=== PATIENT | female | born 1955 | race Caucasian/White ===

== ENCOUNTER 2022-04-30 08:15 | Outpatient (RCR) | payer MEDICARE, SELFPAY ==
--- NOTE | 2022-04-08 11:38 | PT.OPE ---
PT [facility] PT [facility] Eval Start: 04/08/22 10:50 Freq: Status: Active Protocol: Document 04/08/22 10:50 JOSE ALFREDO (Rec: 04/08/22 11:31 JOSE ALFREDO Desktop) E-Signed By Gilmar Patel PT, ATC Physical Therapy Outpatient Evaluation Insurance Information Insurance Name Medicare B Medical Diagnosis L shoulder pain Treating Diagnosis L shoulder pain L shoulder weakness Referring MD Daiana Gonzales PA-C Subjective Subjective Chief complaint is L shoulder pain with active motion yet also at times with rest. L posteriolateral wrist pain appears related at times. Insidious onset, gradual worsening last 10 months. 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 FLEX, IR, EXT 5/5. R shoulder 5/5 all patterns. Palpation Tender in the subacromial space of the L shoulder, mild post cuff tenderness. Posture Bilateral forward shoulder and forward head, increased thoracic kyphosis Other/Pertinent Objective Positive special tests for L shoulder: Hoizontal adduction with over pressure Scherer-Edy Glenohumeral joint mobility- glide directions are not limited, no evidence of adhesive capsulitis. Assessment Assessment/Impression Trish is a pleasant 67 year old woman referred to PT because of L shoulder and L wrist pain. 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 No PMHx including previous symptom episode or injury to the shoulder. Pain is described as sharp with snapping occurrence with active L shoulder movements, particularly lifting out to her side or across her body. Although she did not complain of weakness she agrees to losses found during the examination. The L shoulder also causes discomfort, ache , at rest or when sleeping- laying upon it. X-rays identified moderate degenerative changes in the L acromioclavicular and glenohumeral joints. She has been involved lately with providing care for her as he is recovering from lower back surgery. 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 Following todays examination it appears that she is experiencing L shoulder pain and weakness due to RC tendinosis > joint degeneration. Her wrist discomfort does not appear to have a direct correlation to her shoulder problem. I suspect OA of this joint. Skilled PT addressing posture improvement principles, scapular and posterior cuff strengthening, light RC exercise, AAROM and activity modification reccomended. Primary Functional Limitations Lifting items-laundry. Reaching into cupboards. Fastening seatbelt in car. Finding comfort in sleeping. Plan of Care Rehabilitation Potential Good Physical Therapy Goals 1.Indpendent and correct performance with home ex program. 2.Able to reach overhead into cupboard, L shoulder pain 3/10 or less. 3.Able to lay on involved shoulder x 30 mins without pain interruption. 4.Improve L shld strength for ABD and ER to 4+/5 or more, improving ability for lifting items/ADLs. Coordination/Communication With Referral Source Frequency/Duration 1-2x per week 3-6 weeks Patient Will Be Discharged From Therapy Independent w/HEP, Independently Progressing Evaluation Billing Untimed Code Treatment Minutes 30 PT Eval No Charge No Complexity Low Certification Information Initial Certification Date 04/08/22 Ending Certification Date 07/09/22
== END 2022-09-03 12:51 | disposition home or self-care (01) ==
PROVIDERS: PCP Physician Assistant Medical; Visit Provider Physician Assistant Medical
DX: M25.512 Pain in left shoulder (principal); Z51.89 Encounter for other specified aftercare
CPT/HCPCS: 97110; 97140; 97161

== ENCOUNTER 2022-08-27 06:57 | Day surgery (SDC) | payer MEDICARE, SELFPAY ==
[2022-08-27] VITALS (12 sets, daily range): BP systolic 94–137; BP diastolic 56–88; PULSE 45–72; RESP 12–18; TEMP 36.4–37.3; O2SAT 93–97; BMI 35.1
[2022-08-27] MEDS: LACTATED RINGERS 1000 ML 1,000 ML 100 ML IV ×2 (07:30→09:51)
[2022-08-27] MEDS: MIDAZOLAM HCL 1 MG/ML inj IVP (09:12)
[2022-08-27] MEDS: fentaNYL 100 MCG/2 ML inj IVP (09:12)
[2022-08-27] MEDS: CEFAZOLIN 2 GM in 0.9 % SODIUM CHLORIDE Mini-bag 100 ML IVPB (09:20)
--- NOTE | 2022-08-27 09:20 | SUR.PREOP ---
TIME?OUT:?0910 PT/RN/MDA?VERIFICATION?OF?SURGICAL?SITE,?PROCEDURE,?AND?CONSENT OBTAINED?PRIOR?TO?INVASIVE?PROCEDURE.Left shoulder
--- NOTE | 2022-08-27 09:23 | SUR.PREOP ---
Upto BR to void before neve block placed to OR via cart nerve block in place
--- NOTE | 2022-08-27 09:42 | P.NB_ITS ---
Nerve Block Nerve Block Time Seen by Provider: 09:12 Date Seen: 08/27/22 Type of block requested by surgeon for post-operative analgesia: supraclavicular Side: left Time out performed: Yes Verification of patient name: Yes Verification of date of : Yes Site marking: site marked Name of person performing procedure: Tr Continuous monitoring Was continuous monitoring of O2 sat, B/P, section 8 property manager, recorded every 15 minutes?: Yes Procedure Checklist: sterile prep, needles and gloves Ultrasound guided. Images saved: Yes Medications given in 5ml increments after negative aspiration: Ropivicaine %: 0.5 mL: 20 Needle gauge: 22 Decadron (mg): 10 Precedex (mcg): 25 Patient tolerated procedure well: Yes Block Charges Block Charge (with Pro Fee): Brachial Plexus Use of Ultrasound Machine for Block: Yes- US Guidance/pain block
[2022-08-27] MEDS: EPINEPHrine 1 MG in SODIUM CHLORIDE IRRIG SOLUTION 3,000 ML 9003 MG IRRIGATION ×6 (10:00→11:30)
--- NOTE | 2022-08-27 10:35 | W.ANESCHARGE ---
Anesthesia Charges Start Date/Time Anesthesia Start Date: 08/27/22 Anesthesia Start Time: 09:17 Stop Date/Time Anesthesia Stop Date: 08/27/22 Anesthesia Stop Time: 12:40 Summary Emergency: No
--- NOTE | 2022-08-27 12:21 | PM.ORPRC ---
Procedure Note Date of procedure: 08/27/22 Procedure: PREOPERATIVE DIAGNOSES: 1. Left shoulder rotator cuff tear. 2. Left shoulder AC degenerative joint disease, primary, moderate-severe 3. Left shoulder high-grade partial-thickness biceps tearing 4. Left shoulder subacromial impingement syndrome. POSTOPERATIVE DIAGNOSES: 1. Left shoulder rotator cuff tear - full-thickness supraspinatus and significant portion infraspinatus as well as upper border subscapularis 2. Left shoulder AC degenerative joint disease, primary, moderate-severe 3. Left shoulder long head biceps high-grade partial-thickness tearing 4. Left shoulder anterior and superior labral tearing. 5. 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 Also grade 3 chondromalacia glenoid. 6. Adhesions of supraspinatus and infraspinatus rotator cuff tissue 7. Left shoulder subacromial impingement syndrome. NAME OF OPERATION: 1. Left shoulder arthroscopic rotator cuff repair (massive tear, full-thickness supra and majority infraspinatus as well as upper border subscapularis). Of note, 25% at a time was required for this case compared to a typical rotator cuff partly due to the patient's body habitus (BMI 35.1) and partly because of the complexity of the rotator cuff tear with the adhesions. This required extra hands for assistance and increased time is noted. 2. Left shoulder arthroscopic extensive glenohumeral debridement including debridement of humeral head chondral tissue, glenoid chondral tissue, biceps stump, and anterior and superior labral tissue. 3. Left shoulder arthroscopic long head of biceps tenotomy. 4. Left shoulder arthroscopic lysis of adhesions (distinctly separate from the typical rotator cuff repair given the chronicity of tear, retracted tissue, and split of the rotator cuff). This included primarily adhesions on the superficial surface but also to some degree in the deep surface. SURGEON: Les Tsai MD GAS PLANT SPECIALIST: Vu Hummel PA-C. Of note, a skilled higher level teaching assistant was critical for this case to aide in patient positioning, suture manipulation, arm positioning, instrument positioning, and closure. ANESTHESIA: General plus preoperative supraclavicular block. EBL: Less than 50 mL IMPLANTS: Arthrex 4.75 mm BioComposite SwiveLock suture anchor (x1); 2.6 mm FiberTak RC (x1); 5.5 mm BioComposite corkscrew suture anchor (x1); 5.5 mm BioComposite SwiveLock suture anchor (x2) COMPLICATIONS: None evident INDICATIONS: The patient is a pleasant, 67-year-old female who has experienced left shoulder pain that has been increasing in recent time. Physical exam and imaging were consistent with a rotator cuff tear. Given their findings, as well as the weakness and pain, and inadequate response to nonoperative management, recommendation was made for surgery. FINDINGS: Exam under anesthesia revealed stable shoulder with excellent range of motion. The diagnostic arthroscopy revealed grade 3 chondromalacia broadly, specially midportion. Grade 3 chondromalacia broadly through the humeral head but also grade 4 on the central portion measuring approximately 6 mm in diameter.. The Subscapularis tendon was torn from its upper border to the upper half of the tendon with retraction along with a medial benjie retracted tissue. The long head of the biceps tendon was torn and high-grade partial-thickness manner. It did still have some connective tissue to the biceps tubercle. The superior rotator cuff tendon was found to be torn full-thickness through the entire supraspinatus and majority of the infraspinatus with a split essentially at their interval medially. The tissue was also retracted to the medial humeral head. It had significant adhesions on the superficial surface in particular, but also in the deep surface articular side.. The labrum was degeneratively frayed and torn in the anterior and superior aspects. No loose bodies were identified within the pouch or subscapularis recess. PROCEDURE: Following a thorough discussion of risks, benefits, and alternatives, consent was obtained and the left shoulder was marked. The patient was brought to the operating room and placed supine on the operating table. Induction of anesthesia was completed after preoperative supraclavicular block was administered in preop holding. Appropriate time out was performed identifying proper patient, site, and procedure. 2 g IV Ancef was administered within 1 hour of incision preoperatively. The left upper extremity was prepped and draped in the appropriate sterile fashion using ChloraPrep prep. This was after the patient was positioned in the beach chair with their head in neutral alignment and all bony prominences well padded. The shoulder was insufflated with 20mL of normal saline via an 18g spinal needle from a posterior approach. An 11 blade skin incision allowed a blunt trochar to be inserted and diagnostic arthroscopy to be performed with the findings as noted above. An anterior portal was established with an outside in technique. This allowed the probe to be inserted and confirm the diagnostic arthroscopic findings. The shaver was then inserted and allowed debridement of the anterior and superior labrum. The shaver was also utilized for debridement of the loose chondral flaps on the articular surface of the glenoid chondral tissue and the humeral head chondral tissue as well as the biceps stump. Additionally, the long of the biceps was released from the bicipital tuberosity for arthroscopic tenotomy. The stump was debrided with a shaver. Following this, the upper border subscapularis was repaired after debriding the lesser tuberosity with the shaver and Wheelwright cautery. Subscapularis was captured in horizontal mattress fashion with a fiber tape suture. The tails were brought to a single anchor in the lesser tuberosity with excellent reapproximation of the subscap tendon and good excursion/tension. As the tear was slightly larger than typical, the eyelet sutures were also utilized to help reapproximate more subscapularis tissue to the lesser tuberosity with excellent reapproximation achieved. Thereafter, the subacromial space was entered. Here, it was decided that a subacromial decompression and distal clavicle excision would be avoided given the massive tear nature and the risk for anterior superior escape should the patient have a rotator cuff retear in the future. Further inspection of the supraspinatus and infraspinatus rotator cuff was performed. This identified the tear as noted above. The margins of the tear were debrided, and the greater tuberosity was debrided with a combination of the apollo cautery, shaver, and bur on reverse setting. Extensive lysis of adhesions was performed the combination of Wheelwright cautery and torpedo shaver particular on the superficial surface and also in the deep surface. This again was distinctly separate from the rotator cuff preparation, debridement, and repair. This was above and beyond what is normally performed for rotator cuff repair due to the adhesions. Initially, [id number] repair was performed of the longitudinal split between the supraspinatus and infraspinatus. This was done with 3 separate suture tapes in marginal convergence fashion. Thereafter, a corkscrew anchor was placed posterior medial and the sutures were passed independently 0 (double loaded). Then, a FiberTak RC was passed anterior medial. The 6 tails were brought to lateral row anchors with excellent reapproximation and footprint compression of the rotator cuff tissue. In addition, a FiberLink suture was passed through the posterior far portion to help reapproximate a dog ear. Prior to anchor recycler forklift driver truck driver removal, the eyelet sutures were tugged on for each anchor and found that the anchor had excellent stability within the bone. The shoulder was placed through range of motion and found to be stable. The rotator cuff was re-probed and found to be stable. Instruments were removed. Excess fluid was drained, closure performed with 4-0 Monocryl and Steri-Strips. Dressings were applied. Sling was applied. The patient was awoken from anesthesia and transferred to the PACU in stable condition. A skilled higher level teaching assistant was critical for this case to aid in patient positioning, limb positioning, skill to manipulate arthroscopic instruments and camera, suture management, patient safety, and closure. Of note, 25% at a time was required for this case compared to a typical rotator cuff partly due to the patient's body habitus (BMI 35.1) and partly because of the complexity of the rotator cuff tear with the adhesions. This required extra hands for assistance and increased time is noted. PLAN: 1. Elbow, forearm, wrist and digit range of motion of operative extremity as tolerated. 2. Encouraged ice. 3. Percocet for pain as needed. 4. Sling at all times except for ROM and showering. 5. Follow up with PA visit in 1-2 weeks for wound check. Initiate physical therapy following that visit for passive range of motion. Initiate active assisted range of motion at 8 weeks. Anticipate no strengthening until week 12-13. May do pendulums now.
--- NOTE | 2022-08-27 12:41 | W.ANESCHARGE ---
Anesthesia Charges Start Date/Time Anesthesia Start Date: 08/27/22 Anesthesia Start Time: 09:17 Stop Date/Time Anesthesia Stop Date: 08/27/22 Anesthesia Stop Time: 12:40 Summary Emergency: No
--- NOTE | 2022-08-27 13:10 | W.ANESCHARGE ---
Anesthesia Charges Start Date/Time Anesthesia Start Date: 08/27/22 Anesthesia Start Time: 09:17 Stop Date/Time Anesthesia Stop Date: 08/27/22 Anesthesia Stop Time: 12:40 Summary Emergency: No
--- NOTE | 2022-08-27 13:58 | SUR.PHASEII ---
Pt up in chair doing well denies any pain, instructions gone over with pt and family taking fluids well ready to go home
== END 2022-08-27 14:10 | disposition home or self-care (01) ==
PROVIDERS: PCP Physician Assistant Medical; Visit Provider Orthopaedic Surgery Sports Medicine
PROC: (CPT 29805; principal; 2022-08-27 08:30)
DX: M75.122 Complete rotator cuff tear or rupture of left shoulder, not specified as traumatic (principal); M19.012 Primary osteoarthritis, left shoulder; S46.112A Strain of muscle, fascia and tendon of long head of biceps, left arm, initial encounter; M75.42 Impingement syndrome of left shoulder; S43.432A Superior glenoid labrum lesion of left shoulder, initial encounter; M94.212 Chondromalacia, left shoulder; M75.02 Adhesive capsulitis of left shoulder
CPT/HCPCS: 29827; 29828; 29823; 29825; 01630; 64415; 76942; C1713; J0171; J0330; J0690; J1100; J2250; J2405; J2704; J2710; J2795; J3010; J7120; L3670

== ENCOUNTER 2022-12-01 16:00 | Outpatient (RCR) | payer MEDICARE, SELFPAY ==
--- NOTE | 2022-09-10 13:01 | PT.OPE ---
PT [facility] Eval PT [facility] Eval Start: 09/10/22 08:13 Freq: Status: Active Protocol: Document 09/10/22 10:31 JOSE ALFREDO (Rec: 09/10/22 10:57 JOSE ALFREDO Desktop) E-signed By Gilmar Patel, PT, ATC Physical Therapy Outpatient Evaluation Insurance Information Insurance Name Medicare B Medical Diagnosis Z98.890 s/p rotator cuff repair Treating Diagnosis L shoulder pain L shoulder ROM deficits L shoulder weakness Referring MD Abreu Subjective Subjective After a long year of L shoulder pain with treatment including physical therapy, Trish decided to have her L shoulder surgically repaired on 08/27/22. She says she is recovering well with average pain rating a 5/10. She is unable to sleep reclined in her bed and sleeps in a recliner currently. Using one pain medication pill prior to falling asleep and managing her pain during the day with cold pack application. She did apply heat for the first time last night and said it felt good with no increase in symptoms today. She understands her orders to remain in the sling x 6 weeks from the surgery date while performing shoulder pendulum and active elbow and wrist ROM exercise. 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 Assessment Assessment/Impression Trish is a pleasant 67 year old woman recovering well from her L shoulder RCR two weeks ago. She understands her restrictions and has nearly completed her pain medication usage. She is using cold packs regularly and tried a heating pad last night. Although her shoulder hurts she is also complaining of muscular tension and soreness in the upper shoulder, neck and upper back. These complaints are typical of excessive guarding and can likely be lessened with manual therapy. Her passive range is exceptional for two weeks s/p surgery. She worked hard with her rehab this summer so I expect her to be an active participant with this recovery . Primary Functional Limitations Self care ADL's Driving Sleeping Plan of Care Rehabilitation Potential Good Physical Therapy Goals 1.Independent performance with HEP as progressed through protocol-IRENE ROBERSON 2.PROM FLEX 170, ABD 110, ER 70, IR 70 3.Able to lift arm to 100 degrees permitting ease with dish stacking. 4.IR to 60 degrees permitting ability for donning coat or long sleeve shirt. 5.Pain 2/10 or less in absence of medication. Coordination/Communication With Referral Source Treatment Plan/Direct Interventions Electrical Stimulation Frequency/Duration 1-2x per week 16-20 weeks Patient Will Be Discharged From Therapy Independent w/HEP, Independently Progressing Evaluation Billing Untimed Code Treatment Minutes 30 PT Eval No Charge No Complexity Low Certification Information Initial Certification Date 09/10/22 Ending Certification Date 12/09/22 Provider Signature Shows Agreement With POC & Medical Necessity Physician Signature & Date Requested Please Sign/Date Here Physician Comment/Change : Physician NPI Number #
== END 2022-12-01 16:54 | disposition home or self-care (01) ==
PROVIDERS: PCP Physician Assistant Medical; Visit Provider Physician Assistant Surgical
DX: Z98.890 Other specified postprocedural states (principal); Z51.89 Encounter for other specified aftercare
CPT/HCPCS: 97110; 97140; 97161

== ENCOUNTER 2023-06-29 09:04 | Outpatient (CLI) | payer MEDICARE, SELFPAY | END 2023-06-29 09:05 | disposition home or self-care (01) | PROVIDERS: PCP Physician Assistant Medical; Visit Provider Physician Assistant Medical | DX: Z01.419 Encounter for gynecological examination (general) (routine) without abnormal findings (principal); E78.5 Hyperlipidemia, unspecified; I10 Essential (primary) hypertension; R73.03 Prediabetes | CPT/HCPCS: 80053; 80061; 82043; 82570; 82607; 84443 ==

== ENCOUNTER 2023-09-07 05:21 | Emergency (ER) | payer MEDICARE, SELFPAY ==
[2023-09-07 05:23] VITALS: BP 174/100; PULSE 60; RESP 18; TEMP 36.3; O2SAT 94
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
[2023-09-07] MEDS: IPRAT-ALBUT 0.5-2.5 MG/3 ML NEB 1 NEB IH (06:03)
[2023-09-07 06:10] LABS: PCR FLU A Negative PCR FLU A (Negative); PCR FLU B Negative PCR FLU B (Negative); PCR RSV Negative PCR RSV (Negative)
[2023-09-07 06:23] VITALS: PULSE 62; RESP 18; O2SAT 95
[2023-09-07 06:25] LABS: SARS PCR* Negative SARS-CoV-2 (Negative)
== END 2023-09-07 06:27 | disposition home or self-care (01) ==
LOC: ED 06:20
PROVIDERS: Emergency Provider Family Medicine; PCP Physician Assistant Medical
DX: J40 Bronchitis, not specified as acute or chronic (principal); J18.9 Pneumonia, unspecified organism
CPT/HCPCS: 87631; 94640; 99284

== ENCOUNTER 2023-09-14 09:29 | Emergency (ER) | payer MEDICARE, SELFPAY ==
[2023-09-14] VITALS (9 sets, daily range): BP systolic 110–139; BP diastolic 78–91; PULSE 52–64; RESP 20; TEMP 37.2; O2SAT 92–96; BMI 34.8
--- NOTE | 2023-09-14 10:08 | CRLHL7_ITS ---
For Patients: As a result of the Century Cures Act, medical imaging exams and procedure reports are released immediately into your electronic medical record. You may view this report before your referring provider. If you have questions, please contact your health care provider. INDICATION: SOB TECHNIQUE: PA and lateral. COMPARISON: 11/24/2020 FINDINGS: Lungs and pleural spaces clear. Heart size and pulmonary vasculature within normal limits. No significant osseous abnormality. IMPRESSION: Negative chest. Dictated by Uday Arnold MD @ 09/14/2023 11:04:09 AM (Electronically Signed)
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
[2023-09-14 10:25] LABS: Basophils Absolute Auto 0.09 K/uL (0.00-0.30); Basophils Percent Auto 1.4 % (0.0-3.0); Eosinophils Percent Auto 7.4 % (0.0-7.0); Hematocrit 44.2 % (33.0-51.0); Hemoglobin* 14.7 gm/dL (12.0-16.0); Immature Granulocytes Abs Auto 0.01 K/uL (0.00-0.30); Immature Granulocytes Pct Auto 0.2 %; Lymphocytes Absolute Auto 2.76 K/uL (0.90-2.90); Lymphocytes Percent Auto 42.3 % (20-44); Mean Corpuscular HGB Conc 33 gm/dL (32-36); Mean Corpuscular Hemoglobin 30 pg (26-34); Mean Corpuscular Volume 91 fL (80-100); Monocytes Percent Auto 7.7 % (0.0-11.0); Platelet Count* 225 K/uL (140-440); RDW Coefficient of Variation % 13.2 % (11.5-15.5); Red Blood Count 4.85 m/uL (4.00-5.20); White Blood Count* 6.53 K/uL (4.50-11.00)
[2023-09-14 10:30] LABS: Slide Review Reflex No
[2023-09-14 10:38] LABS: Chloride* 102 mmol/L (96-114); Potassium* 3.7 mmol/L (3.6-5.1); Sodium* 137 mmol/L (135-149)
[2023-09-14 10:41] LABS: Anion Gap 8 mEq/L (7-15); Blood Urea Nitrogen* 18 mg/dL (7-30); Carbon Dioxide* 27 mmol/L (20-32); Creatinine* 0.7 mg/dL (0.5-1.5); Est. Creatinine Clearance* 52.36; Estimated Glomerular Filt Rate 94 ml/min; Glucose* 139 mg/dL (60-115)
[2023-09-14 10:42] LABS: Calcium* 9.6 mg/dL (8.4-10.6)
[2023-09-14 10:43] LABS: D Dimer Quantitative* 1.09 ug/ml (0.00-0.50)
--- NOTE | 2023-09-14 10:53 | CRLHL7_ITS ---
For Patients: As a result of the Century Cures Act, medical imaging exams and procedure reports are released immediately into your electronic medical record. You may view this report before your referring provider. If you have questions, please contact your health care provider. INDICATION: Cough, chest pain. TECHNIQUE: CT chest PE was acquired with 95 cc Isovue 370 IV contrast. COMPARISON: None. FINDINGS: Heart and vasculature: Contrast opacification of the pulmonary arterial tree is adequate. No sign of pulmonary embolism. Heart size is normal. Thoracic aorta and pulmonary artery are normal in caliber. Lungs and pleura: Scattered peribronchial thickening. No suspicious nodules or infiltrates. No pleural effusions, pleural thickening, or pneumothorax. Lymph nodes/mediastinum: No mediastinal, hilar, or axillary adenopathy. Chest wall: No masses. Upper abdomen: No acute or significant findings. Bones: Unremarkable for age. IMPRESSION: No pulmonary embolism. Scattered peribronchial thickening, possibly related to bronchitis. No focal consolidations. Please note that all CT scans at this facility use dose modulation, iterative reconstruction, and/or weight-based dosing when appropriate to reduce radiation dose to as low as reasonably achievable. Dictated by Jourdan Richardson MD @ 09/14/2023 12:19:14 PM (Electronically Signed)
[2023-09-14 10:54] LABS: Troponin I* < 0.01 ng/mL (0.01-0.04)
[2023-09-14 10:56] LABS: PCR FLU A Negative PCR FLU A (Negative); PCR FLU B Negative PCR FLU B (Negative); PCR RSV Negative PCR RSV (Negative)
[2023-09-14 10:58] LABS: SARS PCR* Negative SARS-CoV-2 (Negative)
[2023-09-14] MEDS: IPRAT-ALBUT 0.5-2.5 MG/3 ML NEB 1 NEB IH (12:47)
== END 2023-09-14 13:00 | disposition home or self-care (01) ==
PROVIDERS: Emergency Provider Internal Medicine; PCP Physician Assistant Medical
DX: J20.9 Acute bronchitis, unspecified (principal)
CPT/HCPCS: 36415; 71046; 71275; 80048; 84484; 85025; 85379; 87631; 94640; 99283; 99284; Q9967

== ENCOUNTER 2023-10-05 07:51 | Outpatient (CLI) | payer MEDICARE, SELFPAY ==
--- NOTE | 2023-10-05 08:15 | CRLHL7_ITS ---
For Patients: As a result of the Century Cures Act, medical imaging exams and procedure reports are released immediately into your electronic medical record. You may view this report before your referring provider. If you have questions, please contact your health care provider. BILATERAL SCREENING MAMMOGRAM WITH COMPUTER-AIDED DETECTION AND TOMOSYNTHESIS TECHNIQUE: CC and MLO views were obtained. These mammographic images have been obtained using full-field digital technique. These mammographic images were interpreted with the benefit of computer-aided detection. Breast tomosynthesis was used in this interpretation. COMPARISON FILM: 08/14/21, 05/18/19, 03/11/17. FINDINGS: There are scattered areas of fibroglandular density. IMPRESSION: There is no radiographic evidence for malignancy. ASSESSMENT: BI-RADS Category 2: Benign RECOMMENDATION: Routine screening mammogram in 1 year. A lay language report of this examination will be provided to the patient. JUVE CEDILLO M.D. Diagnostic Radiologist [email or web address] Transcribed: 2:[address]/Dictated by: Juve Cedillo MD @ 10/05/2023 10:04:00 AM (Electronically Signed)
== END 2023-10-05 07:52 | disposition home or self-care (01) ==
LOC: MAMMO 07:51
PROVIDERS: PCP Physician Assistant Medical; Visit Provider Physician Assistant Medical
DX: Z12.31 Encounter for screening mammogram for malignant neoplasm of breast (principal)
CPT/HCPCS: 77063; 77067

== ENCOUNTER 2023-11-02 09:57 | Outpatient (CLI) | payer MEDICARE, SELFPAY | END 2023-11-02 09:58 | disposition home or self-care (01) | PROVIDERS: PCP Physician Assistant Medical; Visit Provider Physician Assistant Medical | DX: R06.02 Shortness of breath (principal); J40 Bronchitis, not specified as acute or chronic; J45.909 Unspecified asthma, uncomplicated | CPT/HCPCS: 83880 ==

== ENCOUNTER 2023-12-29 07:00 | Outpatient (CLI) | payer MEDICARE, SELFPAY | END 2023-12-29 07:01 | disposition home or self-care (01) | LOC: NFLDREF 01-07 12:43 | PROVIDERS: PCP Physician Assistant Medical; Referring Provider Physician Assistant Medical; Visit Provider Physician Assistant Medical | DX: J40 Bronchitis, not specified as acute or chronic (principal) | CPT/HCPCS: 87070 ==

== ENCOUNTER 2024-01-04 14:03 | Outpatient (REF) | payer MEDICARE, SELFPAY ==
[2024-01-04 14:48] LABS: Basophils Absolute Auto 0.07 K/uL (0.00-0.30); Basophils Percent Auto 0.9 % (0.0-3.0); Eosinophils Percent Auto 7.9 % (0.0-7.0); Hematocrit 48.7 % (33.0-51.0); Immature Granulocytes Abs Auto 0.05 K/uL (0.00-0.30); Immature Granulocytes Pct Auto 0.7 %; Lymphocytes Absolute Auto 2.81 K/uL (0.90-2.90); Lymphocytes Percent Auto 38.1 % (20-44); Mean Corpuscular HGB Conc 33 gm/dL (32-36); Mean Corpuscular Hemoglobin 30 pg (26-34); Mean Corpuscular Volume 91 fL (80-100); Monocytes Percent Auto 8.4 % (0.0-11.0); Neutrophils Absolute Auto 3.25 K/uL (1.7-7.0); Platelet Count* 238 K/uL (140-440); Red Blood Count 5.34 m/uL (4.00-5.20); White Blood Count* 7.38 K/uL (4.50-11.00)
[2024-01-04 14:53] LABS: Slide Review Reflex No
[2024-01-05 16:08] LABS: Alpha-1-Antitrypsin 135 mg/dL (90-200); Rheumatoid Factor <10 IU/mL (0-14)
[2024-01-06 01:19] LABS: Immunoglobulin A 323 mg/dL (68-408); Immunoglobulin G 1424 mg/dL (768-1632); Immunoglobulin M 85 mg/dL (35-263)
[2024-01-06 06:45] LABS: Immunoglobulin E 387 kU/L (<=214)
[2024-01-08 16:16] LABS: Cystic Fibrosis, Allele 1 Negative; Cystic Fibrosis, Allele 2 Negative
== END 2024-01-04 14:04 | disposition home or self-care (01) ==
LOC: NPINS 14:03
PROVIDERS: PCP Physician Assistant Medical; Visit Provider Internal Medicine
DX: J47.9 Bronchiectasis, uncomplicated (principal); R05.3 Chronic cough
CPT/HCPCS: 81220; 81222; 81223; 82103; 82784; 82785; 82787; 85025; 86431

== ENCOUNTER 2024-08-18 09:34 | Outpatient (CLI) | payer MEDICARE, SELFPAY | END 2024-08-18 09:35 | disposition home or self-care (01) | LOC: LKVREF 09:52 | PROVIDERS: PCP Physician Assistant Medical; Visit Provider Physician Assistant Medical | DX: R73.03 Prediabetes (principal); E78.5 Hyperlipidemia, unspecified; I10 Essential (primary) hypertension; J47.9 Bronchiectasis, uncomplicated; J45.901 Unspecified asthma with (acute) exacerbation; Z13.29 Encounter for screening for other suspected endocrine disorder | CPT/HCPCS: 80053; 80061; 82785; 84443; 86003 ==

== ENCOUNTER 2024-11-08 11:07 | Outpatient (CLI) | payer MEDICARE, SELFPAY ==
--- NOTE | 2024-11-08 11:30 | CRLHL7_ITS ---
For Patients: As a result of the Century Cures Act, medical imaging exams and procedure reports are released immediately into your electronic medical record. You may view this report before your referring provider. If you have questions, please contact your health care provider. BILATERAL SCREENING MAMMOGRAM WITH COMPUTER-AIDED DETECTION AND TOMOSYNTHESIS TECHNIQUE: CC and MLO views were obtained. These mammographic images have been obtained using full-field digital technique. These mammographic images were interpreted with the benefit of computer-aided detection. Breast Tomosynthesis was used in this interpretation. COMPARISON FILM: 10/05/23, 08/14/22, 05/18/19. FINDINGS: The breasts are almost entirely fatty. IMPRESSION: There is no radiographic evidence for malignancy. ASSESSMENT: BI-RADS Category 2: Benign RECOMMENDATION: Routine screening mammogram in 1 year. A lay language report of this examination will be provided to the patient. Juve Kramer M.D. Diagnostic Radiologist [email or web address] SP/Dictated by: Juve Kramer MD @ 11/09/2024 12:43:00 PM (Electronically Signed)
== END 2024-11-08 11:08 | disposition home or self-care (01) ==
LOC: MAMMO 11:07
PROVIDERS: PCP Physician Assistant Medical; Visit Provider Physician Assistant Medical
DX: Z12.31 Encounter for screening mammogram for malignant neoplasm of breast (principal)
CPT/HCPCS: 77063; 77067

== ENCOUNTER 2025-01-24 09:45 | Outpatient (RCR) | payer MEDICARE, SELFPAY ==
--- NOTE | 2024-05-02 10:56 | PT.OPE ---
PT [place] Outpatient Eval PT [facility] Outpatient Eval Start: 05/02/24 08:28 Freq: Status: Active Protocol: Document 05/02/24 10:55 URIELT (Rec: 05/02/24 10:56 DRE [id number]) E-signed By Rubén Jordan PT Physical Therapy Outpatient Evaluation Insurance Information Recert Due Date 07/31/24 Insurance Name Medicare B Medical Diagnosis Strain of L Achilles tendon Treating Diagnosis L ankle pain Referring Les Mcgarry MD Subjective Preferred Name Trish Ríos Pt presents for eval and treatment of L Achilles strain . She has a visible and palpable dent in the back of her heal just proximal to L calcaneus. Pt reports that she tripped over her husbands pillow on the ground and felt a pull in his R Achilles, and had quite a bit of pain. This occurred the first week of February she thinks. Walking is most painful for her right now. Wearing tennis shoes has been painful as the lip on the heel presses directly where her Achilles tear is located. Pt also reports long history of lung issues which was found to be a fungal infection. Pt describes sequence of treatment for fungal respiratory infection. She was taking 8 tablets of prednisone which gradually reduced over 1-2 months. Pt discontinued the prednisone on 04/19/24. Pt has been wearing a [employer] ankle sleeve and this has helped her Achilles to feel a bit better. Pain Comments 04/23 Date of Last Physician Visit 04/26/24 Current Work Status [employer] Precautions Therapy Limitations/Systems Review Not Limited Objective Other/Pertinent Objective R knee ROM - 5-0-130 L knee ROM - 5-0-130 R ankle PF/DF(kf)/DF(ke) - 65/ 7/5 L ankle PF/DF(kf)/DF(ke) - 60/ 22/10 R Hip Strength - grossly 5/5 MMT for all L Hip Strength - grossly 5/5 MMT for all R knee Extension - 5/5 MMT R Knee Flexion - 5/5 MMT L knee Extension - 5/5 MMT L knee Flexion - 5/5 MMT R ankle DF - 5/5 MMT L ankle DF - 5/5 MMT Palpation: pt reports pain/ tenderness with palpation to L medial gastroc; pt also presents with a significant indent in her L Achilles tendon suggesting rupture, the surrounding tissue is think and dense with palpation although pt notes minimal pain with palpation to this region ; when I do palpate to the deeper fibers of the soleus attachment, these do appear to be in tact and pt does experience more pain/ discomfort with this. Gait: antalgic L, pt ambulating with significant limp on L Special Testing [place] test: positive L Assessment Assessment/Impression Trish is a very pleasant 69 year old female who presents to our clinic for evaluation and treatment of L Achilles strain. Pts long-term use of prednisone likely contributed to this injury and I encouraged Trish to avoid any intense stretching for several more weeks. Today we discussed the likely path to recovery including positioning techniques to allow for appropriate healing of damaged tissues. While it is challenging to say how long it will be before Trish is back to normal I discussed with her that she will likely be doing some form of Physical Therapy for the better part of 1 year. She is comfortable with this plan. We will plan to treat aggressively for the next 4weks and gradually scale back until pts pain and function improves to the point where she is comfortable continuing her care on her own - likely 3-4 months. The nature of the pts condition was explained and all questions were answered to the pts satisfaction. Skilled PT services are medically necessary to address deficits and return patient to highest level of function. Recommend physical therapy sessions 2 reducing to every other week for 12-16 weeks. Pt agrees with this plan. Printout of HEP was given for I completion and pt gives verbal understanding of each exercise . Primary Functional Limitations Walking, stairs, crouching, squatting Plan of Care Rehabilitation Potential Good Physical Therapy Goals STG - To be completed in 2-3 weeks: 1. Pt will report consistent use of ice and elevation of injured limb following activity to allow for reduced inflammation and swelling in ankle. 2. Pt will report reduction of L Achilles pain by factor of 2 with standing so that she may walk with improved comfort and less pain. LTG - To be completed in 12-16 weeks: 1. Pt to be I with HEP so that they may I manage progression of symptoms. 2. Pt will demonstrate ability to perform 10 double limb heel raises as indication of improved strength and function of R ankle. 3. Pt will ambulate with minimal gait deviations and no pain so that she may return to going for walks for recreational exercise. 4. Pt will demo ankle DF AROM with knees flexed and extended within 5 degrees R vs L as indication of improved tissue tension along L Achilles tendon. Treatment Plan/Direct Interventions Electrical Stimulation,Gait Training,Heat,Ice/Cold/ Vasopneumatic,Joint Mobilization,Manual Therapy, Neuromuscular Re-ed,Self-Care/ Home Management,Therapeutic Activities,Therapeutic Exercises,Ultrasound Frequency/Duration 2 reducing to every other week for 12-16 weeks Patient Will Be Discharged From Therapy Completion of LTG(s),Skills Plateau,Independent w/HEP, Independently Progressing Evaluation Billing Untimed Code Treatment Minutes 40 PT Eval No Charge No Complexity Low Certification Information Initial Certification Date 05/02/24 Ending Certification Date 07/31/24 Provider Signature Required Yes Provider Signature Shows Agreement With POC & Medical Necessity Physician NPI Number Write NPI# Here Physician Comment/Change : Physician Signature & Date Requested Please Sign/Date Here
--- NOTE | 2024-06-27 12:41 | PT.OPDN ---
PT [facility] Outpatient Daily Note PT [facility] Outpatient Daily Note Start: 05/02/24 08:28 Freq: Status: Active Protocol: Document 06/27/24 10:08 CJT (Rec: 06/27/24 11:00 CJT [email or web address]) E-signed By Rubén Jordan, PT PT OP Daily Progress Note Visit Information Note Type Recert/Progress Note Visit Number 10 Insurance Authorized Visits No auth required - 100 Physician Authorized Visits eval and treat Insurance Information Recert Due Date 07/31/24 Insurance Name Medicare B Medical Diagnosis Strain of L Achilles tendon Treating Diagnosis L ankle pain Referring Les Mcgarry MD Subjective Preferred Name Trish Subjective Pt doing well. Feels she is making good progress. Has been able to progress to performing heel raises without use of hands. Date of Last Physician Visit 04/26/24 Home Exercise Home Exercise Comments Access Code: [email or web address] URL: [email or web address]/ Date: 05/02/2024 Prepared by: Rubén Jordan Exercises - Seated Heel Raise - 1 x daily - 4-5 x weekly - 3 sets - 20 reps - Long Sitting Ankle Plantar Flexion with Resistance - 1 x daily - 4-5 x weekly - 3 sets - 20-30 reps - Long Sitting Ankle Eversion with Resistance - 1 x daily - 4-5 x weekly - 3 sets - 20-30 reps - Ankle Inversion with Resistance - 1 x daily - 4-5 x weekly - 3 sets - 20-30 reps - Long Sitting Calf Stretch with Strap - 1 x daily - 7 x weekly - 3 sets - 15-30 seconds hold Objective Other/Pertinent Objective L ankle PF/DF(kf)/DF(ke) - / L ankle strength measures 5/5 MMT for all; pt remains unable to perform SL heel raise on L Patient Instructed in Risks/Benefits Yes Therapeutic Exercise Therapeutic Exercise Minutes (minutes) 30 Therapeutic Exercise: To Restore Bike - 6 minutes Functional Status Seated heel raise on foam, 45# 4 x 15 ea Heel raises without use of hands x 10 Heel raises with hands on counter 4 x 20 Gastroc stretch on slant board (20 deg) x 60 Calf press, 10# 3 x 20, 15, 20 *pt to stop as soon as she experiences sharp pain, set limit of 20 reps today Manual Therapy Techniques Manual Therapy Minutes (minutes) 14 Manual Therapy Techniques STM to plantar surface of L foot to promote healing and reduce tissue tension. Cupping to dorsal and plantar surfaces of L foot to reduce fascial tension and facilitate bloodflow. Treatment Minutes Untimed Code Treatment Minutes 6 Timed Code Treatment Minutes 44 Total Treatment Time 50 Billing Units Manual Therapy Units 1 Therapeutic Exercise Units 2 Assessment/Impression Assessment/Impression Trish has progressed fairly well during her time in therapy thus far. Upon palpation, it does feel as though the gastroc portion of her Achilles tendon on L is showing signs of reattachment to the posterior aspect of her calcaneus although this is not substantial at this time. Tension throughout the soleus portion of Achilles tendon feels much improved. Pt is able to complete high volume of resisted ankle PF without pain and has even transitioned into performing heel raises with approx 50% WBing. She does still favor her L ankle but this is excellent progress . Trish has two more therapy sessions scheduled at this time, I would recommend reducing frequency to every other week at that point as pt is I with HEP and just needs more time to facilitate healing. Recommend continued PT services to address deficits and return pt to highest level of function. Plan of Care Physical Therapy Goals STG - To be completed in 2-3 weeks: 1. Pt will report consistent use of ice and elevation of injured limb following activity to allow for reduced inflammation and swelling in ankle. MET 2. Pt will report reduction of L Achilles pain by factor of 2 with standing so that she may walk with improved comfort and less pain. MET LTG - To be completed in 12-16 weeks: 1. Pt to be I with HEP so that they may I manage progression of symptoms. 2. Pt will demonstrate ability to perform 10 double limb heel raises as indication of improved strength and function of R ankle. MET 3. Pt will ambulate with minimal gait deviations and no pain so that she may return to going for walks for recreational exercise. 4. Pt will demo ankle DF AROM with knees flexed and extended within 5 degrees R vs L as indication of improved tissue tension along L Achilles tendon. Daily Plan of Care Continue per POC
--- NOTE | 2024-11-15 12:59 | PT.OPDN ---
PT [place] Outpatient Daily Note PT [facility] Outpatient Daily Note Start: 05/02/24 08:28 Freq: Status: Active Protocol: Document 11/15/24 08:53 CJT (Rec: 11/15/24 12:59 CJT [email or web address]) E-signed By Rubén Jordan, PT PT OP Daily Progress Note Visit Information Note Type Recert/Progress Note Visit Number 16 Insurance Authorized Visits No auth required - 100 Physician Authorized Visits eval and treat Insurance Information Recert Due Date 02/13/25 Insurance Name Medicare B Medical Diagnosis Strain of L Achilles tendon Treating Diagnosis L ankle pain Referring Les Mcgarry MD Subjective Preferred Name Trish Subjective Pt reports she was climbing up and down a ladder. [place] a pop in her L knee when she was getting up to use the bathroom at night. Pt reports this happened twice in one night. Achilles has been feeling better and pt reports she feels her walking is almost normal again. Date of Last Physician Visit 04/26/24 Home Exercise Home Exercise Comments Access Code: [email or web address] URL: [email or web address]/ Date: 05/02/2024 Prepared by: Rubén Jordan Exercises - Seated Heel Raise - 1 x daily - 4-5 x weekly - 3 sets - 20 reps - Long Sitting Ankle Plantar Flexion with Resistance - 1 x daily - 4-5 x weekly - 3 sets - 20-30 reps - Long Sitting Ankle Eversion with Resistance - 1 x daily - 4-5 x weekly - 3 sets - 20-30 reps - Ankle Inversion with Resistance - 1 x daily - 4-5 x weekly - 3 sets - 20-30 reps - Long Sitting Calf Stretch with Strap - 1 x daily - 7 x weekly - 3 sets - 15-30 seconds hold Objective Other/Pertinent Objective L ankle PF/DF(kf)/DF(ke) - 65/ 18/13 L ankle strength measures 5/5 MMT for all; pt remains unable to perform SL heel raise on L Gait: antalgic favoring L, Trendelenburg on R Patient Instructed in Risks/Benefits Yes Therapeutic Exercise Therapeutic Exercise Minutes (minutes) 30 Therapeutic Exercise: To Restore NuStep - 6 minutes, level 5 Functional Status SL TG heel raises, level 3: x 20, level 4: x 20, 3 x 8 on L, 3 x 20 on R 3-point heel raises on [employer], level 8, x 10 ea Gastroc stretch on slant board x 60 Passive ankle DF stretch in prone x 60 Manual Therapy Techniques Manual Therapy Minutes (minutes) 10 Manual Therapy Techniques STM/IASTM to L gastroc, soleus , posterior tibialis, Achilles tendon, peroneals and plantar surface of L foot to stimulate blood flow to promote healing and reduce tissue tension. Dry Needling Dry Needle Minutes 5 Dry Needle Comments Periosteal pecking to posterior, posteromedial, and posterolateral borders of L calcaneus to stimulate blood flow to promote healing of L Achilles tendon. Patient consents to dry needling using sterile dry needle technique in prone position to left gastrocnemius (medial), gastrocnemius ( lateral), soleus muscle group( s) with Dual Channel STIM. Sufficient twitch and homeostasis along with notable tissue softening was obtained . Patient tolerated well with no residual issues; all needles were removed. Post treatment recommendations discussed with patient. Treatment Minutes Timed Code Treatment Minutes 40 Total Treatment Time 40 Billing Units Manual Therapy Units 1 Therapeutic Exercise Units 2 Assessment/Impression Assessment/Impression Pt tolerates all treatment well. Struggles with 3-point heel raises on [employer] today although this was likely due to fatigue by the time we reached this exercise. Trish has progressed quite well over the past few months now that we have found a proper exercise regimen for gradual strengthening of her L Achilles. Pt has been performing SL heel raises and eccentric heel raises with partial bodyweight resistance on her [employer] Gym at home. Upon palpation of Trish's Achilles , her tendon continues to presents with increased tissue volume and tone. The medial aspect of her Achilles feels most progressed at this time and lateral aspect of Achilles is less substantial, although much improved compare to initial evaluation. While pts ambulation has improved, she is still greatly favoring her L LE, likely due to weakness. Recommend continued PT services to address deficits and return pt to highest level of function. I will plan to meet with Trish monthly until we feel she has reached an optimal level of improvement from PT services. Plan of Care Physical Therapy Goals STG - To be completed in 2-3 weeks: 1. Pt will report consistent use of ice and elevation of injured limb following activity to allow for reduced inflammation and swelling in ankle. MET 2. Pt will report reduction of L Achilles pain by factor of 2 with standing so that she may walk with improved comfort and less pain. MET LTG - To be completed in 12-16 weeks: 1. Pt to be I with HEP so that they may I manage progression of symptoms. 2. Pt will demonstrate ability to perform 10 double limb heel raises as indication of improved strength and function of R ankle. MET 3. Pt will ambulate with minimal gait deviations and no pain so that she may return to going for walks for recreational exercise. 4. Pt will demo ankle DF AROM with knees flexed and extended within 5 degrees R vs L as indication of improved tissue tension along L Achilles tendon. Daily Plan of Care Continue per POC Recertification Information Initial Certification Date 05/02/24 Recertification Start Date 11/15/24 Recertification Due Date 02/13/25 Reasons to Continue Skilled Therapy Skilled PT services are medically necessary to address pts deficits in L ankle PF strength, gait mechanics, and functional strength due to ruptured Achilles tendon. Rehabilitation Potential Good Continued Plan of Care and Interventions Ther-Ex, Ther-Act, Manual therapy as needed, Gait training Provider Signature Shows Agreement With POC & Medical Necessity Physician Comment/Change Comment or Changes Physician NPI Number #
== END 2025-03-28 13:54 | disposition home or self-care (01) ==
PROVIDERS: PCP Physician Assistant Medical; Visit Provider Orthopaedic Surgery Sports Medicine
DX: S86.012D Strain of left Achilles tendon, subsequent encounter (principal); Z51.89 Encounter for other specified aftercare
CPT/HCPCS: 97110; 97140; 97161

== ENCOUNTER 2025-03-07 06:12 | Outpatient (CLI) | payer MEDICARE, SELFPAY ==
--- NOTE | 2025-03-07 07:43 | P.ANES_ITS ---
Anesthesia Charges Start Date/Time Anesthesia Start Date: 03/07/25 Anesthesia Start Time: 07:19 Stop Date/Time Anesthesia Stop Date: 03/07/25 Anesthesia Stop Time: 07:43 Coding CPT Codes CPT Codes: LAWSON LWR INTST SCR COLSC - 89779 ([id number]) P2 - PATIENT W/MILD SYST DISEASE, QX - CERAMIC ENGINEERING PROFESSOR SVC W/ MD MED DIRECTION, QK - AIR TECHNICIAN 2-4 CNCRNT ANES PROC
--- NOTE | 2025-03-07 07:43 | W.ANESCHARGE ---
Anesthesia Charges Start Date/Time Anesthesia Start Date: 03/07/25 Anesthesia Start Time: 07:19 Stop Date/Time Anesthesia Stop Date: 03/07/25 Anesthesia Stop Time: 07:43 Coding CPT Codes CPT Codes: LAWSON LWR INTST SCR COLSC - 59611 ([id number]) P2 - PATIENT W/MILD SYST DISEASE, QX - MOPHEAD TRIMMER AND WRAPPER SVC W/ MD MED DIRECTION, QK - CHILDREN'S INSTITUTION ATTENDANT 2-4 CNCRNT ANES PROC
--- NOTE | 2025-03-07 07:54 | P.ANES_ITS ---
Anesthesia Charges Start Date/Time Anesthesia Start Date: 03/07/25 Anesthesia Start Time: 07:19 Stop Date/Time Anesthesia Stop Date: 03/07/25 Anesthesia Stop Time: 07:43 Coding CPT Codes CPT Codes: ANES LWR INTST SCR COLSC - 86226 ([id number]) P2 - PATIENT W/MILD SYST DISEASE, QK - EQUAL OPPORTUNITY ASSISTANT 2-4 CNCRNT ANES PROC, QX - TRAVEL COUNSELOR SVC W/ MD MED DIRECTION
--- NOTE | 2025-03-07 07:54 | W.ANESCHARGE ---
Anesthesia Charges Start Date/Time Anesthesia Start Date: 03/07/25 Anesthesia Start Time: 07:19 Stop Date/Time Anesthesia Stop Date: 03/07/25 Anesthesia Stop Time: 07:43 Coding CPT Codes CPT Codes: ANES LWR INTST SCR COLSC - 30576 ([id number]) P2 - PATIENT W/MILD SYST DISEASE, QK - JUICE TESTER 2-4 CNCRNT ANES PROC, QX - HARVEST WORKER SVC W/ MD MED DIRECTION
== END 2025-03-07 06:13 | disposition home or self-care (01) ==
LOC: OP CLINIC 06:12
PROVIDERS: PCP Physician Assistant Medical; Visit Provider Internal Medicine
DX: Z12.11 Encounter for screening for malignant neoplasm of colon (principal)
CPT/HCPCS: 00812; 45378; J2704

== ENCOUNTER 2025-04-06 09:34 | Outpatient (CLI) | payer MEDICARE, SELFPAY | END 2025-04-06 09:35 | disposition home or self-care (01) | LOC: NFLDREF 04-07 07:57 | PROVIDERS: PCP Physician Assistant Medical; Referring Provider Physician Assistant Medical; Visit Provider Physician Assistant Medical | DX: N39.0 Urinary tract infection, site not specified (principal); B96.20 Unspecified Escherichia coli [E. coli] as the cause of diseases classified elsewhere | CPT/HCPCS: 87086 ==

== ENCOUNTER 2025-08-25 08:20 | Outpatient (CLI) | payer MEDICARE, SELFPAY | END 2025-08-25 08:21 | disposition home or self-care (01) | LOC: NFLDREF 08-30 10:47 | PROVIDERS: PCP Physician Assistant Medical; Referring Provider Physician Assistant Medical; Visit Provider Physician Assistant Medical | DX: Z00.00 Encounter for general adult medical examination without abnormal findings (principal) | CPT/HCPCS: 80053; 80061; 84443 ==